=== PATIENT | male | born 1955 | race Caucasian/White ===

== ENCOUNTER 2022-03-21 15:46 | Outpatient (CLI) | payer MEDICARE, OTHER, SELFPAY | END 2022-03-21 15:47 | disposition home or self-care (01) | LOC: WOUND 15:48 | PROVIDERS: PCP Family Medicine; Visit Provider Physician Assistant Surgical | DX: I87.313 Chronic venous hypertension (idiopathic) with ulcer of bilateral lower extremity (principal); L97.822 Non-pressure chronic ulcer of other part of left lower leg with fat layer exposed; L97.812 Non-pressure chronic ulcer of other part of right lower leg with fat layer exposed; I89.0 Lymphedema, not elsewhere classified | CPT/HCPCS: 29581 ==

== ENCOUNTER 2022-03-24 09:23 | Outpatient (CLI) | payer MEDICARE, OTHER, SELFPAY | END 2022-03-24 09:24 | disposition home or self-care (01) | PROVIDERS: PCP Family Medicine; Visit Provider Nurse Practitioner Family | DX: E11.40 Type 2 diabetes mellitus with diabetic neuropathy, unspecified (principal); I87.312 Chronic venous hypertension (idiopathic) with ulcer of left lower extremity; L97.822 Non-pressure chronic ulcer of other part of left lower leg with fat layer exposed | CPT/HCPCS: 99212 ==

== ENCOUNTER 2022-04-12 13:57 | Outpatient (CLI) | payer MEDICARE, OTHER, SELFPAY | END 2022-04-12 13:58 | disposition home or self-care (01) | PROVIDERS: PCP Family Medicine; Visit Provider Nurse Practitioner Family | DX: I87.2 Venous insufficiency (chronic) (peripheral) (principal); I89.0 Lymphedema, not elsewhere classified; L97.822 Non-pressure chronic ulcer of other part of left lower leg with fat layer exposed; E08.29 Diabetes mellitus due to underlying condition with other diabetic kidney complication | CPT/HCPCS: 11042 ==

== ENCOUNTER 2022-04-14 08:00 | Outpatient (CLI) | payer MEDICARE, OTHER, SELFPAY | END 2022-04-14 08:01 | disposition home or self-care (01) | LOC: WOUND 05-23 08:23 | PROVIDERS: PCP Family Medicine; Visit Provider Nurse Practitioner Family | DX: I89.0 Lymphedema, not elsewhere classified (principal); I87.313 Chronic venous hypertension (idiopathic) with ulcer of bilateral lower extremity; L97.822 Non-pressure chronic ulcer of other part of left lower leg with fat layer exposed; L97.812 Non-pressure chronic ulcer of other part of right lower leg with fat layer exposed | CPT/HCPCS: 29581 ==

== ENCOUNTER 2022-04-17 09:13 | Outpatient (CLI) | payer MEDICARE, OTHER, SELFPAY | END 2022-04-17 09:14 | disposition home or self-care (01) | LOC: WOUND 09:14 | PROVIDERS: PCP Family Medicine; Visit Provider Nurse Practitioner Family | DX: I89.0 Lymphedema, not elsewhere classified (principal); I87.313 Chronic venous hypertension (idiopathic) with ulcer of bilateral lower extremity; L97.822 Non-pressure chronic ulcer of other part of left lower leg with fat layer exposed; L97.812 Non-pressure chronic ulcer of other part of right lower leg with fat layer exposed | CPT/HCPCS: 29581 ==

== ENCOUNTER 2022-04-19 13:53 | Outpatient (CLI) | payer MEDICARE, OTHER, SELFPAY | END 2022-04-19 13:54 | disposition home or self-care (01) | LOC: WOUND 13:53 | PROVIDERS: PCP Family Medicine; Visit Provider Surgery | DX: I87.2 Venous insufficiency (chronic) (peripheral) (principal); L97.221 Non-pressure chronic ulcer of left calf limited to breakdown of skin; I89.0 Lymphedema, not elsewhere classified; E08.29 Diabetes mellitus due to underlying condition with other diabetic kidney complication | CPT/HCPCS: 97597 ==

== ENCOUNTER 2022-04-21 08:19 | Outpatient (CLI) | payer MEDICARE, OTHER, SELFPAY | END 2022-04-21 08:20 | disposition home or self-care (01) | LOC: WOUND 08:19 | PROVIDERS: PCP Family Medicine; Visit Provider Nurse Practitioner Family | DX: I89.0 Lymphedema, not elsewhere classified (principal); I87.313 Chronic venous hypertension (idiopathic) with ulcer of bilateral lower extremity; L97.822 Non-pressure chronic ulcer of other part of left lower leg with fat layer exposed; L97.812 Non-pressure chronic ulcer of other part of right lower leg with fat layer exposed | CPT/HCPCS: 29581 ==

== ENCOUNTER 2022-04-24 10:29 | Outpatient (CLI) | payer MEDICARE, OTHER, SELFPAY | END 2022-04-24 10:30 | disposition home or self-care (01) | LOC: WOUND 10:30 | PROVIDERS: PCP Family Medicine; Visit Provider Nurse Practitioner Family | DX: I89.0 Lymphedema, not elsewhere classified (principal); I87.313 Chronic venous hypertension (idiopathic) with ulcer of bilateral lower extremity; L97.822 Non-pressure chronic ulcer of other part of left lower leg with fat layer exposed; L97.812 Non-pressure chronic ulcer of other part of right lower leg with fat layer exposed | CPT/HCPCS: 29581 ==

== ENCOUNTER 2022-04-26 14:24 | Outpatient (CLI) | payer MEDICARE, OTHER, SELFPAY | END 2022-04-26 14:25 | disposition home or self-care (01) | LOC: WOUND 14:25 | PROVIDERS: PCP Family Medicine; Visit Provider Surgery | DX: I89.0 Lymphedema, not elsewhere classified (principal); I87.2 Venous insufficiency (chronic) (peripheral); E08.29 Diabetes mellitus due to underlying condition with other diabetic kidney complication; Z79.84 Long term (current) use of oral hypoglycemic drugs | CPT/HCPCS: 11042 ==

== ENCOUNTER 2022-04-28 09:23 | Outpatient (CLI) | payer MEDICARE, OTHER, SELFPAY | END 2022-04-28 09:24 | disposition home or self-care (01) | PROVIDERS: PCP Family Medicine; Visit Provider Surgery | DX: I89.0 Lymphedema, not elsewhere classified (principal); I87.2 Venous insufficiency (chronic) (peripheral); L97.222 Non-pressure chronic ulcer of left calf with fat layer exposed; E08.29 Diabetes mellitus due to underlying condition with other diabetic kidney complication | CPT/HCPCS: 29581 ==

== ENCOUNTER 2022-05-01 14:27 | Outpatient (CLI) | payer MEDICARE, OTHER, SELFPAY | END 2022-05-01 14:28 | disposition home or self-care (01) | PROVIDERS: PCP Family Medicine; Visit Provider Surgery | DX: I89.0 Lymphedema, not elsewhere classified (principal); I87.312 Chronic venous hypertension (idiopathic) with ulcer of left lower extremity; L97.828 Non-pressure chronic ulcer of other part of left lower leg with other specified severity | CPT/HCPCS: 29581 ==

== ENCOUNTER 2022-05-03 14:05 | Outpatient (CLI) | payer MEDICARE, OTHER, SELFPAY | END 2022-05-03 14:06 | disposition home or self-care (01) | LOC: WOUND 14:05 | PROVIDERS: PCP Family Medicine; Visit Provider Surgery | DX: I87.332 Chronic venous hypertension (idiopathic) with ulcer and inflammation of left lower extremity (principal); L97.221 Non-pressure chronic ulcer of left calf limited to breakdown of skin; I89.0 Lymphedema, not elsewhere classified; E08.29 Diabetes mellitus due to underlying condition with other diabetic kidney complication | CPT/HCPCS: 97597 ==

== ENCOUNTER 2022-05-05 09:13 | Outpatient (CLI) | payer MEDICARE, OTHER, SELFPAY | END 2022-05-05 09:14 | disposition home or self-care (01) | LOC: WOUND 09:13 | PROVIDERS: PCP Family Medicine; Visit Provider Surgery | DX: I87.332 Chronic venous hypertension (idiopathic) with ulcer and inflammation of left lower extremity (principal); E11.622 Type 2 diabetes mellitus with other skin ulcer; L97.222 Non-pressure chronic ulcer of left calf with fat layer exposed | CPT/HCPCS: 29581 ==

== ENCOUNTER 2022-05-08 07:59 | Outpatient (CLI) | payer MEDICARE, OTHER, SELFPAY | END 2022-05-08 08:00 | disposition home or self-care (01) | LOC: WOUND 07:59 | PROVIDERS: PCP Family Medicine; Visit Provider Surgery | DX: I87.312 Chronic venous hypertension (idiopathic) with ulcer of left lower extremity (principal); L97.222 Non-pressure chronic ulcer of left calf with fat layer exposed; E11.622 Type 2 diabetes mellitus with other skin ulcer | CPT/HCPCS: 29581 ==

== ENCOUNTER 2022-05-10 14:21 | Outpatient (CLI) | payer MEDICARE, OTHER, SELFPAY | END 2022-05-10 14:22 | disposition home or self-care (01) | LOC: WOUND 14:21 | PROVIDERS: PCP Family Medicine; Visit Provider Surgery | DX: I87.332 Chronic venous hypertension (idiopathic) with ulcer and inflammation of left lower extremity (principal); L97.222 Non-pressure chronic ulcer of left calf with fat layer exposed; E08.29 Diabetes mellitus due to underlying condition with other diabetic kidney complication; Z79.84 Long term (current) use of oral hypoglycemic drugs | CPT/HCPCS: 97597 ==

== ENCOUNTER 2022-05-12 08:46 | Outpatient (CLI) | payer MEDICARE, OTHER, SELFPAY | END 2022-05-12 08:47 | disposition home or self-care (01) | LOC: WOUND 08:47 | PROVIDERS: PCP Family Medicine; Visit Provider Surgery | DX: I89.0 Lymphedema, not elsewhere classified (principal); I87.333 Chronic venous hypertension (idiopathic) with ulcer and inflammation of bilateral lower extremity; L97.228 Non-pressure chronic ulcer of left calf with other specified severity; L97.818 Non-pressure chronic ulcer of other part of right lower leg with other specified severity | CPT/HCPCS: 29581 ==